=== PATIENT | male | born 1990 | race African-American/Black ===

== ENCOUNTER 2016-10-06 22:50 | Emergency (ER) | payer SELFPAY ==
[~2016-10-06] VITALS: Ht 185.4 cm; Wt 72.7 kg
[2016-10-06 22:54] VITALS: Ht 185.4 cm; Wt 72.7 kg
[2016-10-06] MEDS ORDERED: IPRATROPIUM (NEB) 0.5 MG/2.5 ML AMP NEB STA (23:02)
[2016-10-06] MEDS ORDERED: ALBUTEROL 0.083% (NEB) 2.5 MG/3 ML AMP NEB STA (23:02)
[2016-10-06] MEDS ORDERED: SOD CHLORIDE 0.9% 500 ML IV STA (23:08)
[2016-10-06] MEDS ORDERED: DEXAMETHASONE 10 MG/ML 1 ML INJ IV STA (23:08)
[2016-10-06 23:25] LABS: ADD SCAN DIFF NO
[2016-10-06 23:30] LABS: BASOPHILS % 0.2 % (0.0-2.0); HEMATOCRIT 46.9 % (42.0-52.0); HEMOGLOBIN 15.8 g/dl (14.0-18.0); LYMPHOCYTES # 1.2 10^3/ul (0.8-2.9); LYMPHOCYTES % 8.2 % (15.0-51.0); MEAN CORPUSCULAR HEMOGLOBIN 28.1 pg (29.0-33.0); MEAN CORPUSCULAR HGB CONC 33.7 g/dl (32.0-37.0); MEAN CORPUSCULAR VOLUME 83.3 fl (82.0-101.0); MEAN PLATELET VOLUME 10.2 fl (7.4-10.4); MONOCYTE # 0.1 10^3/ul (0.3-0.9); MONOCYTES % 0.6 % (0.0-11.0); NEUTROPHIL # 13.3 10^3/ul (1.6-7.5); NEUTROPHILS % 90.5 % (39.0-77.0); PLATELET COUNT 292 10^3/UL (140-415); RED BLOOD COUNT 5.63 10^6/ul (4.70-6.10); RED CELL DISTRIBUTION WIDTH 12.6 % (11.5-14.5); WHITE BLOOD COUNT 14.8 10^3/ul (4.8-10.8)
[2016-10-06] MEDS ORDERED: IBUPROFEN 600 MG TAB PO ONE (23:30)
--- NOTE | 2016-10-06 23:35 | RADRPT ---
PROCEDURE: XR Chest. CLINICAL INDICATION: Asthma exacerbation. TECHNIQUE: Single frontal view of the chest. COMPARISON: None. FINDINGS: The cardiomediastinal silhouette is within normal limits. The lungs are clear. No signs of pleural f luid or pneumothorax are seen. The osseous structures and soft tissues are unremarkable. IMPRESSION: No evidence for active cardiopulmonary disease. RPTAT: [facility] Physician Eleni Date Time Electronically viewed and signed by Physician Eleni on 10/06/2016 23:35 RS/
[2016-10-06 23:44] LABS: CREATININE 1.76 mg/dl (0.61-1.24); POTASSIUM 3.2 mmol/L (3.5-5.1)
[2016-10-07] MEDS ORDERED: IBUP-1542 PO (00:05)
[2016-10-07] MEDS ORDERED: ALBU18HF INHALATION (00:05)
[2016-10-07] MEDS ORDERED: PRED20TA PO (00:05)
--- NOTE | 2016-10-07 00:05 | ERD ---
ER Documentation Chief Complaint Date/Time DATE: 10/07/16 TIME: 00:03 Chief Complaint sob after playing basketball. HPI This is a 25 rheumatic shortness breath (vascular. Patient has history of asthma. He said after this got progressively short of breath or wheezing. Denies any fevers or chills. Noted to have fever here in triage. No nausea no vomiting. No other current complaints. No chest pain. ROS All systems reviewed and are negative except as per history of present illness. PMhx/Soc Medical and Surgical Hx: pt denies Surgical Hx History of Surgery: No Anesthesia Reaction: No Hx Neurological Disorder: No Hx Respiratory Disorders: Yes (asthma) Hx Cardiac Disorders: No Hx Psychiatric Problems: No Hx Miscellaneous Medical Probl: No Hx Alcohol Use: No Hx Substance Use: Yes (marijuana) Hx Tobacco Use: No Smoking Status: Never smoker Physical Exam Vitals Vital Signs Date Time Temp Pulse Resp B/P Pulse Ox O2 Delivery O2 Flow Rate FiO2 10/06/16 23:25 100 2.0 10/06/16 23:24 105 32 100 Nasal Cannula 2.0 10/06/16 23:17 Nasal Cannula 2 10/06/16 23:00 100 35 112/98 100 Room Air 10/06/16 22:54 100.4 124 34 138/67 100 Physical Exam Const: [] Head: Atraumatic Eyes: Normal Conjunctiva ENT: Normal External Ears, Nose and Mouth. Neck: Full range of motion..~ No meningismus. Resp: Clear to auscultation bilaterally Cardio: Regular rate and rhythm, no murmurs Abd: Soft, non tender, non distended. Normal bowel sounds Skin: No petechiae or rashes Back: No midline or flank tenderness Ext: No cyanosis, or edema Neur: Awake and alert Psych: Normal Mood and Affect Result Diagram: 10/06/16 2310 10/06/16 2310 Results 24 hrs Laboratory Tests Test 10/06/16 23:10 White Blood Count 14.810^3/ul Red Blood Count 5.6310^6/ul Hemoglobin 15.8g/dl Hematocrit 46.9% Mean Corpuscular Volume 83.3fl Mean Corpuscular Hemoglobin 28.1pg Mean Corpuscular Hemoglobin Concent 33.7g/dl Red Cell Distribution Width 12.6% Platelet Count 16688^3/UL Mean Platelet Volume 10.2fl Neutrophils % 90.5% Lymphocytes % 8.2% Monocytes % 0.6% Eosinophils % 0.0% Basophils % 0.2% Nucleated Red Blood Cells % 0.0/100WBC Neutrophils # 13.310^3/ul Lymphocytes # 1.210^3/ul Monocytes # 0.110^3/ul Eosinophils # 0.010^3/ul Basophils # 0.010^3/ul Nucleated Red Blood Cells # 0.010^3/ul Sodium Level 139mmol/L Potassium Level 3.2mmol/L Chloride Level 103mmol/L Carbon Dioxide Level 23mmol/L Anion Gap 16 Blood Urea Nitrogen 15mg/dl Creatinine 1.76mg/dl Glucose Level 83mg/dl Calcium Level 10.0mg/dl Current Medications Medications (Trade) Dose Ordered Sig/Victorino Route PRN Reason Start Time Stop Time Status Last Admin Dose Admin Albuterol (Proventil 0.083% (Neb)) 5 mg ONCE STAT NEB 10/06/16 23:02 10/06/16 23:03 DC 10/06/16 23:24 Ipratropium [place] (Atrovent 0.02% (Neb)) 0.5 mg ONCE STAT NEB 10/06/16 23:02 10/06/16 23:03 DC 10/06/16 23:24 Ibuprofen 600 mg 600 mg ONCE ONCE PO 10/06/16 23:30 10/06/16 23:31 DC 10/06/16 23:21 Sodium Chloride (NS) 500 ml @ 500 mls/hr Q1H STAT IV 10/06/16 23:08 10/07/16 00:07 10/06/16 23:21 Dexamethasone (Decadron) 10 mg ONCE STAT IV 10/06/16 23:08 10/06/16 23:09 DC 10/06/16 23:21 Procedures/MDM Chest X-ray 1V Interpreted by me: Soft Tissue: No acute abnormalities Bones: No acute abnormalities Mediastinum/Cardiac Silhouette/Lungs: [No acute abnormalities] Patient's respiratory status has stabilized while in the department and is appropriate for outpatient work up. Exam and work up not consistent w/ impending respiratory failure or cardiovascular collapse. Departure Diagnosis: Primary Impression: Acute asthma exacerbation Asthma severity: unspecified severity Qualified Code: J45.901 - Asthma with acute exacerbation, unspecified asthma severity Additional Impressions: Fever Fever type: unspecified Qualified Code: R50.9 - Fever, unspecified fever cause Acute renal failure Acute renal failure type: unspecified Qualified Code: N17.9 - Acute renal failure, unspecified acute renal failure type Condition: Stable ROSITA PARK October 07, 2016 00:05
[2016-10-07 00:25] VITALS: BP 116/72; PULSE 74; RESP 18; TEMP 98.9
== END 2016-10-07 00:35 | disposition home or self-care (01) ==
LOC: E/R 22:50
DX: J45.901 Unspecified asthma with (acute) exacerbation (principal); R50.9 Fever, unspecified; N17.9 Acute kidney failure, unspecified
CPT/HCPCS: 71010; 80048; 85025; 94664; 96374; 99284; J1100; J7040